=== PATIENT | female | born 2000 | race Caucasian/White ===

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

== ENCOUNTER → 2024-10-08 | Outpatient (CLI) | payer BC, SELFPAY ==
--- OUTSIDE RECORDS SUMMARY | 2024-10-08 13:49 | XMS RPT_ITS | CCD ---
Author Organization [facility] Inform ion Partnership [facility] Care Team Providers Care [place] Outfit Supervisor Name Role Phone CARLOS AUSTIN Unavailable Unavailable RAY BELTRÁN Unavailable Unavailable RAY BELTRÁN Unavailable Unavailable Unavailable Primary Care Provider MD Marjan Ramirez Attending Unavailable DO Milo Villalobos Attending UnavailJuni Munson Referring Unavailable Juni Bernstein Primary Care Unavailable Lul Nazario Attending Unavailable No Family, Physician Primary Care Unavailable No Family, Physician Primary Care Unavailable No Family, Physician Primary Care Unavailable No Family, Physician Primary Care Unavailable Allergies Allergy Classification Reported Allergen(s) Allergy Type Date of Onset Reaction(s) Facility Cephalosporins (antibiotic) (1 source) ceFAZolin Drug Allergy 8 [facility] Repository (2 sources) cefprozil Drug Allergy 0 Other (See Comments) [place], [place] (1 source) cefprozil; Translations: [Cefzil] Drug Allergy [facility] Repository Medications Current Medications Medication Drug Class(es) Dates Sig (Normalized) Sig (Original) ibuprofen 800 mg oral tablet (3 sources) Nonsteroidal Anti-inflammatory Drug Start: 02-27-2020 take 1 tablet by mouth every six hours as needed for pain ibuprofen (ADVIL;MOTRIN) 800 MG tablet Take 1 tablet by mouth every 6 hours as needed for Pain 15 tablet 0 02/27/2020 Active End: 02-27-2020 take 1 tablet by mouth every six hours as needed for pain ibuprofen (ADVIL;MOTRIN) 200 MG tablet Take 200 mg by mouth every 6 hours as needed for Pain 0 02/27/2020 Discontinued (REORDER) predniSONE 20 mg oral tablet (2 sources) Start: 02-27-2020 End: 03-03-2020 take 2 tablets by mouth once daily predniSONE (DELTASONE) 20 MG tablet Take 2 tablets by mouth daily for 5 days 10 tablet 0 02/27/2020 03/03/2020 Active Completed/Discontinued Medications Medication Drug Class(es) Dates Sig (Normalized) Sig (Original) traMADol hydrochloride 50 mg oral tablet (1 source) Opioid Agonist Start: 02-27-2020 End: 02-27-2020 traMADol (ULTRAM) tablet 50 mg Start: 02-27-2020 End: 02-27-2020 traMADol (ULTRAM) tablet 50 mg Problems Active Problems Problem Classification Problem Date Documented Da te Episodic/Chronic Other connective tissue disease (1 source) Trochanteric bursitis; Translations: [Greater trochanteric bursitis of left hip] Episodic Other nervous system disorders (2 sources) Aphasia; Translations: [Aphasia] Onset: 01-05-2022 Chronic Past or Other Problems Problem Classification Problem Date Documented Da te Episodic/Chronic Administrative/social admission (2 sources) Encounter for pre-employment examination; Translations: [Encounter for blood-alcohol and blood-drug test] Onset: 08-21-2023 Episodic Immunizations and screening for infectious disease (1 source) Encounter for screening for respiratory tuberculosis; Translations: [Encounter for screening for respiratory tuberculosis] Onset: 12-20-2023 Episodic Other non-traumatic joint disorders (1 source) Hip pain; Translations: [Hip pain, acute, left] Episodic Results Test Name Value Interpretation Reference Range Facil it Urgent Care Visit Reporton 0 09-25-2023 Urgent Care Visit Report [facility] [address], [address] [place] [address] OFFICE VISIT Date of Service: 09/25/23 MR#: [id number] Acct: [id number] Name: ANDREW NICOLE Rep #: [id number] : 2000 Provider: FRANCIE Parker Age/Sex: 23/F Location: [facility] Status: Signed Intake Vital Signs 07/07/17 21:49 Height 5 ft 6 in Intake Visit Reasons: WORK PHYSICAL/SELF PAY Allergies cefazolin Adverse Reaction (Verified 07/07/17 21:49) Hives [facility] Medical History (Updated 09/25/23 @ 12:02 by Lul MARMOLEJO, PA) Physical exam, pre-employment Social History (Updated 11/11/18 @ 16:22 by Abe MARMOLEJO, PA) Smoking Status: Never smoker HPI HPI Details: ANDREW NICOLE, is a 23 F who presents to the office today for Office Procedures Physical Exam Coding PE Coding Pre-employment PE: Yes Coding Level of Care Code No Charge Diagnoses Physical exam, pre-employment Z02.1 Assessment and Plan Assessment and Plan (1) Physical exam, pre-employment: Status: Acute 09/25/23 1240 Date Lul Cloud Signature: Date (if applicable) CC: Normal [facility] .Fentanyl Scrn wo Conf,Uron 01-01-2022 Ur Fentanyl Scrn Negative Normal NEG <1.0 [facility] Comment on above: Performed By: #### C [id number] #### [place] [address] Ur Fentanyl Scrn Qnt 0.00 ng/mL Normal <=0.99 [facility] Comment on above: Performed By: #### C [id number] #### [place] [address] .eGFRon 01-01-2022 GFR/1.73 sq M.predicted MDRD (S/P/Bld) [Vol rate/Area] mL/min/{1.73_m2} Normal >=60 [facility] Comment on above: Result Comment: [facility] have implemented the eGFR calculation approach that does not have a coefficient for race and that conforms to the NKF-ASN Task Force Recommendations. Stages of Chronic Kidney Disease GFR Stage 3a Mild to moderate loss of kidney function 59 to 45 Stage 3b Moderate to severe loss of kidney function 44 to 33 Stage 4 Severe loss of kidney function 29 to 15 Stage 5 Kidney failure Less than 15 GFR calculated using the CKD-Epi Creatinine Equation (2020): eGFR = 142 X min(SCr/?, 1)? X max(SCr /?, 1)-1.200 X 0.9938Age X 1.012 [if female] Abbreviations/Units: eGFR (estimated glomerular filtration rate) = mL/min/1.73 m2 SCr (standardized serum creatinine) = mg/dL ? = 0.7 (females) or 0.9 (males) ? = -0.241 (females) or -0.302 (males) min = indicates the minimum of SCr/? or 1 max = indicates the maximum of SCr/? or 1 Age = years Performed By: #### E GFR #### [address] [address] CBC w/ Diffon 01-01-2022 Erythrocyte distribution width (RBC) [Ratio] 15.3 % High 11.6-14.8 [facility] Comment on above: Performed By: #### C BC #### [address] [address] Hematocrit (Bld) [Volume fraction] 37.4 % Normal 36.0-46.0 [facility] Comment on above: Performed By: #### C BC #### [address] [address] Hemoglobin (Bld) [Mass/Vol] 12.5 g/dL Normal 12.0-16.0 [facility] Comment on above: Performed By: #### C BC #### [address] [address] MCH (RBC) [Entitic mass] 27.0 pg Normal 27.0-35.0 [facility] Comment on above: Performed By: #### C BC #### [address] [address] MCHC 33.4 % Normal 31.0-37.0 [facility] Comment on above: Performed By: #### C BC #### [address] [address] MCV (RBC) [Entitic vol] 80.8 fL Normal 80.0-100.0 [facility] Comment on above: Performed By: #### C BC #### [address] [address] Platelet 193 x10*3/mcL Normal 150-350 [facility] Comment on above: Performed By: #### C BC #### [address] [address] Platelet mean volume (Bld) [Entitic vol] 9.7 fL Normal 6.7-10.6 [facility] Comment on above: Performed By: #### C BC #### [address] [address] RBC 4.63 x10*6/mcL Normal 3.80-5.20 [facility] Comment on above: Performed By: #### C BC #### [address] [address] WBC 7.3 x10*3/mcL Normal 4.5-11.0 [facility] Comment on above: Performed By: #### C BC #### [address] [address] CMPon 01-01-2022 Albumin [Mass/Vol] 5.1 g/dL High 3.2-4.9 [facility] Comment on above: Performed By: #### . Automated Diff #### [address] [address] Albumin/Globulin [Mass ratio] 1.5 {ratio} Normal 1.1-2.2 [facility] Comment on above: Performed By: #### . Automated Diff #### [address] [address] Alk Phos 42 IU/L Normal 32-91 [facility] Comment on above: Performed By: #### . Automated Diff #### [address] [address] ALT [Catalytic activity/Vol] 14 U/L Normal 14-54 [facility] Comment on above: Performed By: #### . Automated Diff #### [address] [address] Anion gap [Moles/Vol] 13 mmol/L Normal 7-17 [facility] Comment on above: Performed By: #### . Automated Diff #### [address] [address] AST [Catalytic activity/Vol] 22 U/L Normal 15-41 [facility] Comment on above: Performed By: #### . Automated Diff #### [address] [address] Bili Total 1.0 mg/dL Normal 0.3-1.2 [facility] Comment on above: Performed By: #### . Automated Diff #### [address] [address] Calcium [Mass/Vol] 9.9 mg/dL Normal 8.5-10.3 [facility] Comment on above: Performed By: #### . Automated Diff #### [address] [address] Chloride [Moles/Vol] 103 mmol/L Normal 98-110 [facility] Comment on above: Performed By: #### . Automated Diff #### [address] [address] CO2 [Moles/Vol] 22 mmol/L Normal 22-32 [facility] Comment on above: Performed By: #### . Automated Diff #### [address] [address] Creatinine [Mass/Vol] 0.80 mg/dL Normal 0.44-1.03 [facility] Comment on above: Performed By: #### . Automated Diff #### [address] [address] Glucose [Mass/Vol] 101 mg/dL High 70-99 [facility] Comment on above: Performed By: #### . Automated Diff #### [address] [address] Potassium [Moles/Vol] 3.6 mmol/L Normal 3.4-4.8 [facility] Comment on above: Performed By: #### . Automated Diff #### [address] [place] [address] Protein [Mass/Vol] 8.4 g/dL High 6.5-8.1 [facility] Comment on above: Performed By: #### . Automated Diff #### [address] [address] Sodium [Moles/Vol] 134 mmol/L Normal 133-142 [facility] Comment on above: Performed By: #### . Automated Diff #### [address] [address] Urea nitrogen [Mass/Vol] 12 mg/dL Normal 8-26 [facility] Comment on above: Performed By: #### . Automated Diff #### [address] [address] Urea nitrogen/Creatinin e [Mass ratio] 15.0 mg/mg Normal 10.0-20.0 [facility] Comment on above: Performed By: #### . Automated Diff #### [address] [address] [address] Angio Head Neck w/ Contra ston 01-01-2022 CT Angio Head Neck w/ Contrast EXAMINATION: CT Angio Head Neck w/ Contrast HISTORY: Right-sided numbness and inability to speak. COMPARISON: Head CT on 01/01/2022. TECHNIQUE: Following IV administration of iodinated contrast, axial CT scans of the head and neck were obtained. MPR and MIP images images were obtained. Carotid stenosis is based on NASCET criteria. Dose reduction techniques were achieved by using automated exposure control and/or adjustment of mA and/or kV according to patient size and/or use of iterative reconstruction technique. FINDINGS: CTA OF THE HEAD: No major branch occlusion or significant intracranial stenosis. No aneurysm. Dural venous sinuses are patent. CTA OF THE NECK: No abnormal soft tissue mass in the neck. The visualized lungs are clear. Osseous structures are intact. Aortic arch shows no aneurysm. The great vessels of the aortic arch show no significant stenosis. Vertebral arteries show no significant stenosis or dissection. Common carotids and internal carotids show no significant stenosis or dissection. IMPRESSION: Normal CTA of head and neck. Dural venous sinuses are patent. Final Dictated by: Francisco Javier Luo MD Dictated DT/TM: 01.01.2022 6:13 pm Signed by: Francisco Javier Luo MD Signed (Electronic Signature): 01.01.2022 6:26 pm (If Report Is Signed, Electronically Signed in Other Vendor System) Normal [facility] CT Brain w/o Contraston 12-21 CT Brain w/o Contrast EXAMINATION: CT Brain w/o Contrast HISTORY: Right-sided numbness and inability to speak. TECHNIQUE: Axial CT scans through the head were obtained without IV contrast administration. Dose reduction techniques were achieved by using: automated exposure control and/or adjustment of mA and /or kV according to patient size and/or use of iterative reconstruction technique. COMPARISON: None. FINDINGS: The cerebral hemispheres have normal white and blank matter and corticomedullary differentiation. To the limit of CT, the posterior fossa appears unremarkable. The ventricular system and cortical sulci are normal for the patient's age. No area of abnormal mass-effect or edema or intracranial hemorrhage. The visualized orbits show no gross mass. The visualized paranasal sinuses show no air-fluid level. Mastoid air cells are clear. IMPRESSION: No acute intracranial process. Final Dictated by: Francisco Javier Luo MD Dictated DT/TM: 01.01.2022 6:09 pm Signed by: Francsico Javier Luo MD Signed (Electronic Signature): 01.01.2022 6:12 pm (If Report Is Signed, Electronically Signed in Other Vendor System) Normal [facility] Diff Autoon 01-01-2022 Baso Absolute 0.0 x10*3/mcL Normal 0.0-0.2 [facility] Comment on above: Performed By: #### . Automated Diff #### [facility] [address] [place] [address] Basophils/100 WBC (Bld) 0.5 % Normal 0.0-1.5 [facility] Comment on above: Performed By: #### . Automated Diff #### [address] [place] [address] Eos Absolute 0.0 x10*3/mcL Normal 0.0-0.4 [facility] Comment on above: Performed By: #### . Automated Diff #### [address] [address] Eosinophils/100 WBC (Bld) 0.3 % Normal 0.0-5.4 [facility] Comment on above: Performed By: #### . Automated Diff #### [address] [address] Lymph Absolute 2.1 x10*3/mcL Normal 1.2-5.2 [facility] Comment on above: Performed By: #### . Automated Diff #### [address] [address] Lymphocytes/100 WBC (Bld) 28.2 % Normal 28.0-42.0 [facility] Comment on above: Performed By: #### . Automated Diff #### [address] [address] [place] Absolute 0.5 x10*3/mcL Normal 0.1-1.1 [facility] Comment on above: Performed By: #### . Automated Diff #### [address] [address] Monocytes/100 WBC (Bld) 7.0 % Normal 3.7-11.9 [facility] Comment on above: Performed By: #### . Automated Diff #### [address] [address] Neutro Absolute 4.7 x10*3/mcL Normal 1.8-8.0 [facility] Comment on above: Performed By: #### . Automated Diff #### [address] [address] Neutro Auto 64.0 % Normal 45.6-68.4 [facility] Comment on above: Performed By: #### . Automated Diff #### [address] [address] ED Clinical Summaryon 2021 ED Clinical Summary [address] [address] ED Clinical Summary Person Information Name: Andrew Nicole [facility] Age: 21 Years : 2000 Sex: Female PCP: Marital Status: Phone: Race: White Ethnicity: Not or Language: Polish Visit Reason: Potential stroke; Weakness or fatigue Acuity: 2 Enc Type: Emergency Med Service: Emergency Medicine Arrival: 01/01/2022 17:35:23 Discharge: 01/01/2022 20:40:00 LOS: 000 03:05 Checkin: 01/01/2022 17:35:23 Checkout: 01/01/2022 20:40:00 Dispo Type: Home or Self Care Address: [address] [place] [address] Provider Notes: Diagnosis: 1:Anxiety; 2:Adjustment disorder; 3:Stroke-like symptoms Resolved Problems No Problems Documented Smoking Status: Smoking Status Never (less than 100 in lifetime) Functional Status: Sensory Deficits: History of Falls: Mobility Assistance Prior to Admission: ADLs: Current Level of Assistance for Self-Care/Mobility: Cognitive Status: Allergies Cefzil (Unknown) Laboratory or Other Results This Visit (last charted value for your 01/01/2022 visit) Hematology 01/01/2022 5:41 PM WBC: 7.3 x10 RBC: 4.63 x10 Neutro Auto: 64.0 % -- Normal range between ( 45.6 and 68.4 ) Lymph Auto: 28.2 % -- Normal range between ( 28.0 and 42.0 ) [place] Auto: 7.0 % -- Normal range between ( 3.7 and 11.9 ) Eos Auto: 0.3 % -- Normal range between ( 0.0 and 5.4 ) Basophil Auto: 0.5 % -- Normal range between ( 0.0 and 1.5 ) Baso Absolute: 0.0 x10 MCV: 80.8 fL -- Normal range between ( 80.0 and 100.0 ) MCHC: 33.4 % -- Normal range between ( 31.0 and 37.0 ) Lymph Absolute: 2.1 x10 Hct: 37.4 % -- Normal range between ( 36.0 and 46.0 ) [place] Absolute: 0.5 x10 MCH: 27.0 pg -- Normal range between ( 27.0 and 35.0 ) Neutro Absolute: 4.7 x10 Hgb: 12.5 g/dL -- Normal range between ( 12.0 and 16.0 ) Mean Platelet Volume: 9.7 fL -- Normal range between ( 6.7 and 10.6 ) Platelet: 193 x10 Eos Absolute: 0.0 x10 RDW: 15.3 % -- Normal range between ( 11.6 and 14.8 ) Coagulation 01/01/2022 5:41 PM PT: 10.6 seconds -- Normal range between ( 8.9 and 11.8 ) INR: 1.0 ratio PTT: 25.4 seconds -- Normal range between ( 20.7 and 28.3 ) Urinalysis 01/01/2022 7:20 PM UA Spec Grav: 1.034 -- Normal range between ( 1.003 and 1.035 ) UA pH: 6.0 Chemistry 01/01/2022 7:20 PM Ur Creatinine Tox Scrn: 21.8 mg/dL 01/01/2022 5:41 PM Creatinine Lvl: 0.80 mg/dL -- Normal range between ( 0.44 and 1.03 ) BUN: 12 mg/dL -- Normal range between ( 8 and 26 ) Glucose Lvl: 101 mg/dL -- Normal range between ( 70 and 99 ) Potassium Lvl: 3.6 mmol/L -- Normal range between ( 3.4 and 4.8 ) AST: 22 IU/L -- Normal range between ( 15 and 41 ) ALT: 14 IU/L -- Normal range between ( 14 and 54 ) Troponin-I: <0.03 ng/mL -- Normal range between ( 0.00 and 0.03 ) Sodium Lvl: 134 mmol/L -- Normal range between ( 133 and 142 ) Calcium Lvl: 9.9 mg/dL -- Normal range between ( 8.5 and 10.3 ) Albumin Lvl: 5.1 g/dL -- Normal range between ( 3.2 and 4.9 ) Total Protein: 8.4 g/dL -- Normal range between ( 6.5 and 8.1 ) Bili Total: 1.0 mg/dL -- Normal range between ( 0.3 and 1.2 ) Alk Phos: 42 IU/L -- Normal range between ( 32 and 91 ) Myoglobin: 23.7 Chloride: 103 mmol/L -- Normal range between ( 98 and 110 ) CO2: 22 mmol/L -- Normal range between ( 22 and 32 ) Anion Gap: 13 -- Normal range between ( 7 and 17 ) Estimated GFR: >60 mL/min/1.73m? BUN Crea Ratio: 15.0 -- Normal range between ( 10.0 and 20.0 ) AG Ratio: 1.5 -- Normal range between ( 1.1 and 2.2 ) 01/01/2022 5:35 PM Blood Glucose, Capillary: 102 mg/dL -- Normal range between ( 78 and 120 ) Toxicology 01/01/2022 7:20 PM Ur PCP Scrn: Negative ng/mL Ur Opiate Scrn: Negative ng/mL Ur Methadone Scn: Negative ng/mL Ur Cannab Scrn: Negative ng/mL Ur Amph Scrn: Negative ng/mL Ur Benzodia Scrn: Negative ng/mL Ur Imelda Scrn: Negative ng/mL Ur Cocaine Scrn: Negative ng/mL Ur Oxy Screen: Negative ng/mL Ur Fentanyl Scrn: Negative ng/mL Ethanol, Plasma: <10 mg/dL Computed Tomography 01/01/2022 5:[address] Angio Head Neck w/ Contrast: CT Angio Head Neck w/ Contrast 01/01/2022 5:[address] Brain w/o Contrast: CT Brain w/o Contrast Diagnostic Radiology 01/01/2022 6:41 PM XR Chest 1 View: XR Chest 1 View Measurements: Height: Weight: 69.6 kg Blood Pressure: /72 mmHg BMI: Procedures No Procedures Documented Immunizations No Immunizations Documented This Visit Final Med List: Medications that have not changed Other Medications FLUoxetine (PROzac 20 mg oral capsule) 1 Capsules Oral (given by mouth) every day. Last Dose: ___ ondansetron (ondansetron 4 mg oral tablet, disintegrating) 1 Tabs Oral (given by mouth) every 8 hours as needed as needed for nausea/vomiting for 3 Days. Refills: 0. Last Do (more content not included)... Normal [facility] ED Note-Nursingon 01-01-2022 ED Note-Nursing The patient has rece nt superficial cuts bilaterally on her forearms. Pt did have bandages on both arms. This RN removed the bandages and cleaned the blood off and questioned the patient. Patient denies any suicidal or homicidal thoughts. Electronically signed by Fanny Baker 01/01/22 18:27 EDT Normal [facility] ED Note-Physicianon 01-02-20 22 ED Note-Physician Chief Complaint pt friend reports that pt has not been able to speak since 1529. Right arrm weakness History of Present Illness Patient is a 21 year old female accompanied by her friend presenting to the ED for evaluation of a potential stroke. Her friend reports that patient texted her around 1530, stating that she did not feel right and that her brain felt disassociated from her body Patient has been unable to speak and has been having right arm weakness since. She has a history of anxiety and FND, but her friend reports she has not had focal weakness or trouble with her speech in the past. She is not on control. Review of Systems GENERAL: [Negative for weakness, malaise] EYES: [Negative for injury, pain, redness, discharge] ENT: [Negative for injury, pain , sore throat and discharge] NECK: [Negative for injury, pain, swelling, and stiffness] CARDIOVASCULAR: [Negative for chest pain, palpitations] RESPIRATORY: [Negative for shortness of breath, cough, wheezing, and pleuritic chest pain] ABDOMEN/GI: [Negative for pain, nausea, vomiting] BACK: [Negative for injury or bruising] : [Negative for injury, bleeding, discharge, frequency, hematuria, urgency] MUSCULOSKELETAL: [Negative for arthralgias, injury and deformity] SKIN: [Negative for injury, rash, discoloration] NEURO: [Positive for right-sided weakness and aphasia. Negative for numbness, tingling, and seizure] Physical Exam Constitutional: the patient appears in no acute distress, alert, awake, non-toxic Head/face: exam is negative for obvious evidence of injury or deformity Eyes: Pupils: equal, round, and reactive to light. Sclera: no appreciated abnormality ENT: Exam is negative for injury or acute deformity Neck: External neck: no acute changes, Trachea: is midline with no obvious abnormalities, ROM/movement: no acute changes, Meningeal signs: are not present. Cardiovascular: Rate: normal, Rhythm: regular, Pulses: no pulse deficits are appreciated, Heart sounds: normal, Edema: is not appreciated, JVD: is not appreciated. Respiratory: Exam negative for respiratory distress, Respirations: normal, Breath sounds: are normal, no acute changes, throughout. Abdomen / GI Exam: negative for guarding, pulsatile mass, rebound tenderness, tenderness, Inspection: abdomen appears normal, Bowel sounds: normal, active, Palpitation: abdomen is soft and non-tender, Indicators: Fink?s sign is negative, McBurney?s point is not-tender. Back: Exam negative for acute changes, CVA tenderness. Musculoskeletal/extrem ity: Extremities: all appear grossly normal, with no appreciated pain with palpation, Perfusion: the patient is warm, the extremity is warm. Sensation intact. DVT exam: no swelling no tenderness, Calves: are non-tender. Skin: Exam negative for cyanosis, any evidence of obvious injury, Appearance: appears normal. Neuro: Aphasic, drift of right upper and lower extremity, Sensation: no obvious gross deficits. Psych: Exam negative for acute changes, delusions, inappropriate behavior. Vitals & Measurements HR: 99 (Peripheral) RR: 18 BP: 112/72 SpO2: 99% HT: 170 cm WT: 69.6 kg (Dosing) WT: 69.6 kg Additional Vitals No qualifying data available. Procedure No qualifying data available. ASA Documentation Medical Decision Making Mary Herrera scribing for and in the presence of Dr. Barrera. Reexamination/Reevalua tion Scribe Attestation: The information in this document, created by the medical aides teacher for me, accurately reflects the services I personally performed and the decisions made by me. This report has been created using voice recognition software. It may contain minor errors which are inherent in voice recognition technology. Assessment/Plan 1. 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 The results of pertinent diagnostic studies and exam findings supporting the discharge from the ED were discussed. The patient?s provisional diagnosis and plan of care were discussed with the patient and present family. The patie (more content not included)... Normal [facility] Ethanolon 01-01-2022 Ethanol, Plasma <10 Normal <=9 [facility] Comment on above: Result Comment: To c onvert mg/dL to g/dL, divide result by 1,000. Legal limit of intoxication is 80 mg/dL (0.08 g/dL). Performed By: #### . Automated Diff #### [address] [address] Myoglobinon 01-01-2022 Myoglobin [Mass/Vol] 23.7 ng/mL Normal [facility] Comment on above: Performed By: #### . Automated Diff #### [address] [address] PTon 01-01-2022 INR Coag (PPP) [Relative time] 1.0 {INR} Normal <=3.5 [facility] Comment on above: Result Comment: INR has no normal range. INR Therapeutic range is: 2.0-3.0 (AF, CVA, TIAs, DVT prophylaxis, acute DVT) 2.5-3.5 ([facility] heart valves, recurrent thrombosis/emboli) Performed By: #### P TINR #### [address] [address] PT Coag (PPP) [Time] 10.6 s Normal 8.9-11.8 [facility] Comment on above: Performed By: #### P TINR #### [address] [address] PTTon 01-01-2022 aPTT Coag (Bld) [Time] 25.4 s Normal 20.7-28.3 [facility] Comment on above: Performed By: #### . Automated Diff #### [address] [address] S Preg Qlon 01-01-2022 Serum Preg Negative Normal [facility] Comment on above: Result Comment: The hCG Combo Rapid Test has a sensitivity of 10 mIU/mL in serum and is capable of detecting as early as 1 day after the first missed menses. Performed By: #### S PTQ #### [place] [id number] Troponin-Ion 01-01-2022 Troponin I.cardiac [Mass/Vol] ng/mL Normal 0.00-0.03 [facility] Comment on above: Result Comment: An i ncreased Troponin-I value, in the absence of myocardial ischemia, may indicate other etiologies of cardiac damage. Performed By: #### T ROP #### [address] [address] UDS Compon 01-01-2022 Creatinine [Mass/Vol] 21.8 mg/dL Normal [facility] Comment on above: Performed By: #### C [id number] #### [address] [address] Ur Amph Scrn Negative Normal NEG = <1000 [facility] Comment on above: Performed By: #### C [id number] #### [address] [address] Ur Imelda Scrn Negative Normal NEG = <200 [facility] Comment on above: Performed By: #### C [id number] #### [address] [address] Ur Benzodia Scrn Negative Normal NEG = <200 [facility] Comment on above: Performed By: #### C [id number] #### [address] [address] Ur Cannab Scrn Negative Normal NEG = <50 [facility] Comment on above: Performed By: #### C [id number] #### [address] [address] Ur Cocaine Scrn Negative Normal NEG = <300 [facility] Comment on above: Performed By: #### C [id number] #### [address] [address] Ur Methadone Scn Negative Normal NEG = <300 [facility] Comment on above: Performed By: #### C [id number] #### [address] [address] Ur Opiate Scrn Negative Normal NEG = <300 [facility] Comment on above: Performed By: #### C [id number] #### [address] [address] Ur Oxy Screen Negative Normal NEG = <100 [facility] Comment on above: Performed By: #### C [id number] #### [address] [address] Ur Oxy Scrn Qnt 0 ng/mL Normal <=99 [facility] Comment on above: Performed By: #### C [id number] #### [address] [address] Ur PCP Scrn Negative Normal NEG = <25 [facility] Comment on above: Performed By: #### C [id number] #### [address] [address] UA pH 6.0 Normal 4.5 - 7.8 [facility] Comment on above: Performed By: #### C [id number] #### [address] [address] UA Spec Grav 1.034 Normal 1.003-1.035 [facility] Comment on above: Performed By: #### C [id number] #### [facility] [address] [place] [address] X S NoGelon 01-01-2022 Extra Serum NoGel Collected Normal [facility] Comment on above: Performed By: #### E RNG #### [facility] [address] [place] [address] XR Chest 1 Viewon 01-01-2022 XR Chest 1 View EXAM: XR Chest 1 Vie w at 1837 hours HISTORY: This is a 21-year-old with right arm weakness. The patient is unable to verbalize. COMPARISON: None. TECHNIQUE: AP upright portable chest x-ray FINDINGS: The heart is not enlarged and the vasculature is not distended. There is no clear evidence of a focal infiltrate, effusion or pneumothorax. The osseous structures are grossly intact. IMPRESSION: No acute infiltrate or evidence of cardiac decompensation. Direct comparison with a previous study may be helpful in confirming the chronicity of these findings. Final Dictated by: Peace VILLAGOMEZ PhD, Mason Pedraza Dictated DT/TM: 01/01/2022 6:46 pm Signed by: Peace VILLAGOMEZ PhD, Mason Pedraza Signed (Electronic Signature): 01/01/2022 6:48 pm (If Report Is Signed, Electronically Signed in Other Vendor System) Normal [facility] XR HIP 2-3 VW W PELVIS LEFTo n 02-27-2020 No fracture. This report has been created using voice recognition software. It may contain minor errors which are inherent in voice recognition technology. Final report electronically signed by Dr Claude Benedict on 02/27/2020 2:39 PM [place], [place] PROCEDURE: XR HIP 2- 3 VW W PELVIS LEFT CLINICAL INFORMATION: 19-year-old female with lateral hip pain after running. Difficulty bearing weight. COMPARISON: No prior study. TECHNIQUE: An AP view of the pelvis and 2 views of the left hip were obtained. FINDINGS: On the AP view of the pelvis, the pelvic ring is intact. There is no fracture or dislocation of either hip. The superior and inferior pubic rami are intact. The sacrum and sacroiliac joints appear normal. No degenerative changes are noted. Dedicated views of the left hip demonstrate there is no fracture. There is no dislocation. The hip joint is normal. The visualized aspects of the superior and inferior pubic rami are normal. [place], [place] Kamran, [facility] Incoming Radiant Results From [employer] - 02/27/2020 2:41 PM EST PROCEDURE: XR HIP 2-3 VW W PELVIS LEFT CLINICAL INFORMATION: 19-year-old female with lateral hip pain after running. Difficulty bearing weight. COMPARISON: No prior study. TECHNIQUE: An AP view of the pelvis and 2 views of the left hip were obtained. FINDINGS: On the AP view of the pelvis, the pelvic ring is intact. There is no fracture or dislocation of either hip. The superior and inferior pubic rami are intact. The sacrum and sacroiliac joints appear normal. No degenerative changes are noted. Dedicated views of the left hip demonstrate there is no fracture. There is no dislocation. The hip joint is normal. The visualized aspects of the superior and inferior pubic rami are normal. IMPRESSION: No fracture. This report has been created using voice recognition software. It may contain minor errors which are inherent in voice recognition technology. Final report electronically signed by Dr Claude Benedict on 02/27/2020 2:39 PM [place], [place] Vital Signs Date Time Vital Sign Value Performing Clinician Noemi grande 02-27-2020 14:05-0500 BMI (Body Mass Index) 20.81 kg/m2 [place], [place] 02-27-2020 14:05-0500 Body Temperature 97.59 [degF] [place], [place] 02-27-2020 14:05-0500 Body weight 65.77 kg [place] 02-27-2020 14:05-0500 BP Diastolic 70 mm[Hg] [place] 02-27-2020 14:05-0500 BP Systolic 140 mm[Hg] [place] 02-27-2020 14:05-0500 Height 177.8 cm [place] 02-27-2020 14:05-0500 Pulse (Heart Rate) 84 /min [place] 02-27-2020 14:05-0500 Pulse Oximetry 100 % [place] 02-27-2020 14:05-0500 Respiratory Rate 18 /min [facility] [place] 02-27-2020 12:49-0500 BMI (Body Mass Index) 22.71 kg/m2 [facility] [place], [place] 02-27-2020 12:49-0500 Body Temperature 98.1 [degF] [facility] [place] 02-27-2020 12:49-0500 Body weight 65.77 kg [facility] , [place] 02-27-2020 12:49-0500 BP Diastolic 56 mm[Hg] [facility] , [place] 02-27-2020 12:49-0500 BP Systolic 104 mm[Hg] [facility] , [place] 02-27-2020 12:49-0500 Height 170.2 cm [facility] [place] 02-27-2020 12:49-0500 Pulse (Heart Rate) 91 /min [facility] 02-27-2020 12:49-0500 Pulse Oximetry 98 % [facility] , [place] 02-27-2020 12:49-0500 Respiratory Rate 16 /min [facility] [email or web address], [place] Encounters Encounter Date Encounter Type Care Provider Facility Start: 07-07-2024 End: 07-07-2024 ambulatory Physician No [facility] Start: 12-20-2023 End: 12-20-2023 ambulatory Physician No [facility] Start: 12-20-2023 Encounter for genera l adult medical examination without abnormal findings Physician No [facility] Start: 12-18-2023 End: 12-18-2023 ambulatory Physician No [facility] Start: 09-25-2023 End: 09-25-2023 ambulatory Juni Bernstein Facility:[facility] Start: 08-21-2023 End: 08-21-2023 ambulatory Physician No [facility] Start: 01-05-2022 ambulatory Facility:[facility] Start: 01-02-2022 End: 01-03-2022 ambulatory DO Milo Villalobos Facility:[facility] Start: 01-01-2022 End: 01-01-2022 Emergency department patient visit MD Marjan Barrera Facility:[facility] Start: 02-27-2020 End: 02-27-2020 Emergency department patient visit [facility] Comment on above: Hip pain, acute, lef t (Primary Dx) Start: 02-27-2020 End: 02-27-2020 Subsequent hospital visit by physician [facility] Comment on above: Greater trochanteric bursitis of left hip (Primary Dx) Start: 07-07-2017 End: 07-07-2017 Ambulatory CARLOS Andres AUSTIN [facility] Procedures Date Procedure Procedure Detail Performing Clinician Start: 02-27-2020 Radex hip unilateral with pelvis 2-3 views Fanny Lindsey Work Phone: Plan of Treatment Date Care Activity Detail Author Start: 12-02-2023 DTaP/Tdap/Td vaccine (7 - Td) DTaP/Tdap/Td vaccine (7 - Td) [place] Start: 12-22-2019 Influenza vaccination Flu vaccine (# 1) [place] Start: 2017 Screening for Chlamy moe trachomatis Chlamydia screen [place], [place] Start: 2016 HIV screening HIV screen [place], [place] Start: 06-03-2014 HPV vaccine (3 - 2-d ose series) HPV vaccine (3 - 2-dose series) [place] Start: 2001 Hepatitis B vaccine (1 of 3 - 3-dose primary series) Hepatitis B vaccine (1 of 3 - 3-dose primary series) [place] Payers Date Payer Category Payer Self-pay 2022 Unknown 2019 Unknown [id number] 2001 Unknown [id number] 2.16. [id number] 2001 Unknown [id number] 2.16. [id number] 2001 Unknown [id number] 2.16. [id number] 2001 Unknown [id number] 2.16. [id number] 2001 Unknown [id number] 2.16. [id number] 2001 Unknown [id number] 2.16. [id number] 2001 Unknown [id number] 2.16. [id number] Unknown [id number] Unknown [id number] [id number] Social History Date Type Detail Facility Start: 02-27-2020 [facility] [place] Start: 02-27-2020 Tobacco use and exposure Never used [place] Start: 02-27-2020 Alcohol intake Lifetime non-d jeancarlos (finding) [place] Start: 02-27-2020 History SDOH Alcohol Frequency 1 [place] Sex Assigned At Not on file [place], [place] Summary Purpose Family History No Family History Records FoundNo Family History Records FoundNo Family History Records FoundNo Family History Records FoundNo Family History Records Found Advance Directives No Advanced Directives Records FoundNo Advanced Directives Records FoundNo Advanced Directives Records FoundNo Advanced Directives Records FoundNo Advanced Directives Records Found Discharge Instructions * Instructions* Craig Gorman APRN - [employer] - 02/27/2020 Take prednisone as prescribed for the full 5 days. Ice to the hip 4-5 times a day for [address] a thin cloth in your skin and the ice. Ibuprofen or naproxen as needed for pain. Rest the hip. No running or strenuous activities until pain resolves. 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 [facility] to [facility] during their walk-in hours between 7:30 AM and 4 PM Saturday through Saturday ifneeded. * Attachments The following attachments cannot be sent through Care Everywhere. * Hip Bursitis (Polish) documented in this encounter* Attachments The following attachments cannot be sent through Care Everywhere. * Hip Pain (Polish) documented in this encounter Assessments Diagnosis Greater trochanteric bursitis of left hip Enthesopathy of hip region Diagnosis Hip pain, acute, left Additional Source Comments INFORMATION SOURCE (unrecogn ized section and content) DATE CREATED AUTHOR 10/11/2017 [facility] DATE CREATED AUTHOR AUTHOR'S ORGANIZ ATION 01/21/2022 [facility] DATE CREATED AUTHOR AUTHOR'S ORGANIZ ATION 01/22/2022 [facility] DATE CREATED AUTHOR AUTHOR'S ORGANIZ ATION 09/26/2023 [facility] DATE CREATED AUTHOR AUTHOR'S ORGANIZ ATION 07/09/2024 [facility] Reason for Visit (unrecogniz ed section and content) Reason Comments Hip Pain Injured 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 This clinical summary was aggregated from multiple sources. Caution should be exercised in using it in the provision of clinical care. This summary normalizes information from multiple sources, and as a consequence, information in this document may materially change the coding, format and clinical context of patient data. In addition, data may be omitted in some cases. CLINICAL DECISIONS SHOULD BE BASED ON THE PRIMARY CLINICAL RECORDS. [employer] provides no warranty or guarantee of the accuracy or completeness of information in this document.
[2024-10-08 15:13] LABS: Absolute Lymphocyte Count 1.48 X10^3/uL (0.83-4.51); Absolute Neutrophil Count 2.6 X10^3/uL (2.0-7.7); Basophil# 0.02 X10^3/uL; Basophil% 0.4 % (0-1); Eosinophil# 0.07 X10^3/uL; Eosinophils% 1.5 % (0-5); Hematocrit 31.9 % (37-47); Hemoglobin 10.5 g/dL (12.0-15.0); Lymphocyte # 1.48 X10^3/ul (0.83-4.51); Lymphocyte % 32.5 % (19-41); Mean Corp Hgb Conc 32.9 g/dL (32-36); Mean Corpuscular Hgb 28.6 pg (27.0-32.0); Mean Corpuscular Volume 86.9 fL (81-99); Mean Platelet Vol. 12.1 fl (6.2-12.0); Monocyte# 0.35 X10^3/uL; Monocyte% 7.7 % (0-10); NRBC Flagged by Analyzer 0 % (0-5); Neutrophil # 2.62 X10^3/uL (2.7-7.7); Neutrophil % 57.7 % (47-70); Platelet Count 154 K/mm3 (150-450); RBC Distribution Width CV 13.5 % (11.6-14.6); RBC Distribution Width SD 43.1 fl (35.1-43.9); Red Blood Count 3.67 M/mm3 (4.2-5.4); White Blood Count 4.6 K/mm3 (4.4-11.0)
[2024-10-08 16:07] LABS: ALB/GLOB Ratio 1.6 RATIO (0.9-2.4); AST(SGOT) 18 U/L (<=31); Alanine Aminotransfer ALT/SGPT 9 U/L (<=34); Alkaline Phosphatase 37 U/L (35-104); Anion Gap 10 (5-15); BUN 12 mg/dL (4-19); BUN/Creat Ratio 17.1 RATIO (10-20); Calcium,Total 8.8 mg/dL (7.6-11.0); Carbon Dioxide 21.7 mmol/L (21.0-32.0); Chloride 107 mmol/L (98-108); EST Glomerular Filtration Rate 124 (>60); Ferritin 15 ng/mL (22-378); Globulin 2.4 g/dL (2.2-4.2); Glucose 94 mg/dL (70-99); Potassium 4.2 mmol/L (3.3-5.1); Protein, Total 6.4 g/dL (5.9-8.4); Sodium Level 139 mmol/L (133-145); Total Bilirubin 0.46 mg/dL (0.00-1.30)
[2024-10-10 04:07] LABS: Thyroid Peroxidase AB < 9 IU/mL (0-34)
[2024-10-12 14:09] LABS: ANTINUCLEAR ANTIBODIES DIRECT Negative (Negative)
== END | disposition home or self-care (01) ==
PROVIDERS: Physician Assistant; PCP Family Medicine; Referring Provider Family Medicine; Visit Provider Family Medicine
DX: R42 Dizziness and giddiness (principal)
CPT/HCPCS: 36415; 80053; 82728; 83735; 84439; 84443; 85025; 86038; 86376